=== PATIENT | male | born 2000 | race Caucasian/White ===

== ENCOUNTER 2021-11-21 23:30 | Emergency (ER) | payer BC ==
[2021-11-22] MEDS ORDERED: Ketorolac Tromethamine 30 MG/ML VIAL ONE ×2 (01:01→01:06)
== END 2021-11-22 02:02 | disposition home or self-care (01) ==
LOC: CSHERS 23:30
DX: S40.012A Contusion of left shoulder, initial encounter (principal); W18.09XA Striking against other object with subsequent fall, initial encounter
CPT/HCPCS: 96372; J1885